=== PATIENT | female | born 1995 | race Caucasian/White ===

== ENCOUNTER → 2019-04-13 14:47 | Outpatient (CLI) | payer OTHER, SELFPAY ==
--- NOTE | 2019-04-20 17:12 | PM.PFT.1 ---
Pulmonary Function Test Referral & Results Date Patient Seen: 04/13/19 Requesting provider: Tom Olivera Results: The spirometry demonstrates an FVC of 3.99 L which is 98% of predicted. The FEV1 was measured at 2.50 L which is 72% of predicted. The FEV1/FVC ratio was 63 which is 72% of predicted. Following the administration of bronchodilator there was a 20% improvement in FEV1 and FEV1/FVC ratio. Lung volumes show an SVC of 3.93 L which is 98% of predicted. The diffusing capacity was measured at 20.82 which is 77% of predicted. No hemoglobin value was provided, so no correction for potential anemia could be made, if appropriate. The maximum voluntary ventilation was slightly reduced Interpretation: This study demonstrates mild obstructive lung disease with evidence of significant benefit following bronchodilator There is also mild reduction in diffusing capacity suggesting the amount of disease the capillary alveolar level
== END ==
PROVIDERS: Visit Provider Student in an Organized Health Care Education/Training Program
DX: R06.2 Wheezing (principal)
CPT/HCPCS: 94060; 94726; 94729